=== PATIENT | male | born 1960 | race Caucasian/White ===

== ENCOUNTER 2024-01-25 07:38 | Day surgery (SDC) | payer OTHER ==
[2024-01-24 15:55] VITALS: BMI 38.7
[~2024-01-25 07:38] MED LIST: Fluorouracil 100 MG, Enoxaparin 25 MG, EPINEPHrine 0.3 MG in Ophthalmic Irrigation Solu... IRR SCH
[2024-01-25] MEDS ORDERED: PHENYLephrine 2.5% Ophth Soln 15 ml Bottle ONE (08:19)
[2024-01-25] MEDS ORDERED: Cyclopentolate 1% Opth Drop 2 ML BOT ONE (08:19)
[2024-01-25] MEDS ORDERED: PROPOFOL 20 ML ONE (09:28)
[2024-01-25] MEDS ORDERED: fentaNYL 50 mcg/mL 1 mL Vial ONE (09:29)
[2024-01-25] MEDS ORDERED: Dexamethasone 4 mg/ml Vial ONE (09:29)
[2024-01-25] MEDS ORDERED: Midazolam HCl 2 mg/2 ml Vial ONE (09:29)
[2024-01-25] MEDS ORDERED: Ondansetron PF 4 MG/2 ML Vial ONE (09:29)
[2024-01-25] MEDS ORDERED: Famotidine/PF 20 mg/2ml Vial ONE (10:04)
[2024-01-25] MEDS ORDERED: Lidocaine 2% PF 5 ML VIAL ONE (10:07)
[2024-01-25] MEDS ORDERED: PHENYLEPHRINE-NS 100 MCG/ML 10 ML SYRINGE ONE (10:39)
[2024-01-25 15:01] LABS: Hematocrit 49.8 % (42.0-52.0); Hemoglobin 16.8 g/dL (14.0-18.0)
[2024-01-25 15:08] LABS: Anion Gap 14 mmol/L (10-20); BUN (Urea Nitrogen) 16 mg/dL (8.4-25.7); Calc. Creatinine Clearance 129 mL/min (70-130); Calcium 9.1 mg/dL (7.8-10.44); Carbon Dioxide 24 mmol/L (23-31); Chloride 105 mmol/L (98-107); Estimated GFR 85; Glucose 138 mg/dL (80-115); Potassium 4.6 mmol/L (3.5-5.1); Sodium 138 mmol/L (136-145)
[2024-01-25 15:15] LABS: Troponin I Less than 0.010 ng/mL (< 0.028)
== END 2024-01-25 15:50 | disposition home or self-care (01) ==
LOC: SDC 07:38
PROVIDERS: ATTEND Ophthalmology Retina Specialist
PROC: 08T53ZZ Resection of Left Vitreous, Percutaneous Approach (ICD-10-PCS; principal; 2024-01-25)
PROC: 08NF3ZZ Release Left Retina, Percutaneous Approach (ICD-10-PCS; 2024-01-25)
DX: H33.42 Traction detachment of retina, left eye (principal); I10 Essential (primary) hypertension; E03.9 Hypothyroidism, unspecified; Z79.82 Long term (current) use of aspirin
CPT/HCPCS: 67041; 71045; 80048; 82962; 84484; 85014; 85018; J0171; J1100; J1650; J2250; J2405; J2704; J3010; J3490; J9190; 36416; 93005; 93010; C1776; C1814

== ENCOUNTER 2024-10-10 06:10 | Day surgery (SDC) | payer OTHER ==
[2024-10-09 14:30] VITALS: BMI 36.2
[2024-10-10] MEDS ORDERED: Cyclopentolate 1% Opth Drop 2 ML BOT ONE (06:44)
[2024-10-10 07:05] LABS: Anion Gap 12 mmol/L (10-20); BUN (Urea Nitrogen) 18 mg/dL (8.4-25.7); Calc. Creatinine Clearance 141 mL/min (70-130); Calcium 9.1 mg/dL (7.8-10.44); Carbon Dioxide 23 mmol/L (23-31); Chloride 110 mmol/L (98-107); Glucose 91 mg/dL (80-115); Potassium 4.4 mmol/L (3.5-5.1); Sodium 141 mmol/L (136-145)
[2024-10-10] MEDS ORDERED: Enoxaparin 30 MG (0.3 mL) SYRINGE ONE (07:45)
[2024-10-10] MEDS ORDERED: Lidocaine 1% PF 5 ML VIAL ONE (07:45)
[2024-10-10] MEDS ORDERED: PROPOFOL 200 MG/20 ML VIAL ONE (07:45)
[2024-10-10] MEDS ORDERED: CEFAZOLIN 1 GM VIAL ONE (07:45)
[2024-10-10] MEDS ORDERED: Maxitrol 0.1% Opth Oint 3.5 GM TUBE ONE (07:45)
[2024-10-10] MEDS ORDERED: Lidocaine 4% PF 5 ML AMP ONE (07:45)
== END 2024-10-10 09:46 | disposition home or self-care (01) ==
LOC: SDC 06:10
PROVIDERS: ATTEND Ophthalmology Retina Specialist
PROC: 08T53ZZ Resection of Left Vitreous, Percutaneous Approach (ICD-10-PCS; principal; 2024-10-10)
DX: H43.392 Other vitreous opacities, left eye (principal); I10 Essential (primary) hypertension; E03.9 Hypothyroidism, unspecified; Z79.890 Hormone replacement therapy; Z79.899 Other long term (current) drug therapy
CPT/HCPCS: 67036; 80048; 93005; J0166; J1650; J2250; J3010; J9190; 93010; J0690; J2704; J3301; J3490